=== PATIENT | female | born 1940 | race Caucasian/White ===

== ENCOUNTER 2016-07-23 14:22 | Outpatient (RCR) | payer MEDICARE, OTHER | END 2016-07-24 | disposition home or self-care (01) | LOC: M PR 14:22 | PROVIDERS: ATTEND Internal Medicine | DX: I27.81 Cor pulmonale (chronic) (principal) | CPT/HCPCS: G0424 ×7 ==

== ENCOUNTER 2016-08-10 12:30 | Outpatient (RCR) | payer MEDICARE, OTHER | END 2016-08-21 | LOC: M PR 12:30 | PROVIDERS: ATTEND Internal Medicine | DX: I27.81 Cor pulmonale (chronic) (principal) | CPT/HCPCS: G0424 ×5 ==

== ENCOUNTER 2016-09-14 13:26 | Outpatient (RCR) | payer MEDICARE, OTHER | END 2016-09-21 | LOC: M PR 13:26 | PROVIDERS: ATTEND Internal Medicine | DX: Z51.89 Encounter for other specified aftercare (principal); I27.81 Cor pulmonale (chronic) | CPT/HCPCS: G0424 ×5 ==

== ENCOUNTER 2016-10-10 12:30 | Outpatient (RCR) | payer MEDICARE, OTHER | END 2016-10-21 | LOC: M PR 12:30 | PROVIDERS: ATTEND Internal Medicine | DX: Z51.89 Encounter for other specified aftercare (principal); I27.81 Cor pulmonale (chronic) | CPT/HCPCS: G0424 ×3 ==

== ENCOUNTER 2016-10-22 08:17 | Outpatient (RCR) | payer MEDICARE, OTHER | END 2016-11-21 | LOC: M PR 08:17 | PROVIDERS: ATTEND Internal Medicine | DX: Z51.89 Encounter for other specified aftercare (principal); I27.81 Cor pulmonale (chronic) ==

== ENCOUNTER 2016-11-22 08:48 | Outpatient (RCR) | payer MEDICARE, OTHER | END 2016-12-21 | LOC: M PR 08:48 | PROVIDERS: ATTEND Internal Medicine | DX: I27.81 Cor pulmonale (chronic) (principal) ==

== ENCOUNTER → 2016-11-29 | Outpatient (REF) | payer MEDICARE, OTHER | LOC: M LAB REF 16:15 | PROVIDERS: ATTEND Surgery | DX: D04.71 Carcinoma in situ of skin of right lower limb, including hip (principal) ==

== ENCOUNTER → 2017-01-01 | Outpatient (CLI) | payer MEDICARE, OTHER ==
--- NOTE | 2017-01-01 16:22 | REP ---
REASON: Cough. COMPARISON: 08/04/2015 Marked chronic changes are seen throughout the lung [place] without evidence of an acute patchy parenchymal opacity or pleural effusion. Cardiomediastinal silhouette is unchanged. There is cardiomegaly. There is no change in the osseous structures. IMPRESSION: Marked chronic changes without plain radiographic evidence of acute disease superimposed on chronic change, however, it needs to be correlated clinically and if necessary obtain chest CT. Signed by Primo Conway DO 01/01/2017 04:37 P
== END ==
LOC: M ADAMS 11:44
PROVIDERS: ATTEND Internal Medicine
DX: R05 Cough (principal)

== ENCOUNTER → 2017-02-16 | Outpatient (CLI) | payer MEDICARE, OTHER ==
--- NOTE | 2017-02-16 12:13 | REP ---
Chest two views HISTORY: foreign body Comparison: 01/01/2017 A diffuse increase in interstitial markings is present in the lungs consistent with chronic interstitial fibrosis. . The heart is normal in size. The pulmonary vasculature is normal in appearance. The bony structure is intact. There is no radiopaque foreign body. IMPRESSION: Chronic interstitial fibrosis. Signed by Constantino Black MD 02/16/2017 12:05 P
== END ==
LOC: M ADAMS 11:46
PROVIDERS: ATTEND Physician Assistant Medical
DX: J84.10 Pulmonary fibrosis, unspecified (principal)

== ENCOUNTER 2017-09-02 13:43 | Outpatient (RCR) | payer SELFPAY, MEDICARE, OTHER | END 2017-09-21 | LOC: M CR 13:43 | DX: Z51.89 Encounter for other specified aftercare (principal); J84.10 Pulmonary fibrosis, unspecified ==

== ENCOUNTER 2017-10-16 15:12 | Outpatient (RCR) | payer SELFPAY | END 2017-10-21 | LOC: M CR 15:12 | DX: Z51.89 Encounter for other specified aftercare (principal); J84.10 Pulmonary fibrosis, unspecified ==

== ENCOUNTER → 2017-10-24 | Outpatient (REF) | payer MEDICARE, OTHER ==
[2017-10-24 18:09] LABS: AMYLASE 40 U/L (25-115)
[2017-10-24 18:09] LABS: LIPASE 81 U/L (73-393)
== END ==
LOC: M LAB REF 16:43
DX: R19.7 Diarrhea, unspecified (principal); R10.9 Unspecified abdominal pain
CPT/HCPCS: 82150

== ENCOUNTER → 2017-10-25 | Outpatient (REF) | payer MEDICARE, OTHER | LOC: M LAB REF 19:28 | DX: R19.7 Diarrhea, unspecified (principal) | CPT/HCPCS: 87507 ==

== ENCOUNTER → 2018-01-08 | Outpatient (REF) | payer MEDICARE, OTHER | LOC: M LAB REF 19:22 | DX: N30.01 Acute cystitis with hematuria (principal) | CPT/HCPCS: 87186 ==

== ENCOUNTER → 2018-08-01 | Outpatient (REF) | payer MEDICARE, OTHER ==
[~2018-08-01] MED LIST: ADV250INH INH; AMLO5TAB6 PO; ASPI1TAB PO; COZA100T2 PO; CRES20TA PO; FLUO20CA8 PO; NEXI40CA PO; PATA0.2S OU; REST0.05 OU; SING10TA32 PO; TOPR25TA13 PO; VENTAER IN
== END ==
LOC: M LAB REF 16:08
PROVIDERS: ATTEND Nurse Practitioner Family
DX: N76.0 Acute vaginitis (principal)

== ENCOUNTER → 2019-01-30 | Outpatient (REF) | payer MEDICARE, OTHER ==
[~2019-01-30] MED LIST changes: -ASPI1TAB PO; +ASPI81TA26 PO; -CRES20TA PO; +CRES20TA2 PO; +TOPR25TA PO; -TOPR25TA13 PO
== END ==
LOC: M LAB REF 12:10
PROVIDERS: ATTEND Internal Medicine
DX: R19.7 Diarrhea, unspecified (principal)

== ENCOUNTER → 2019-02-19 | Outpatient (REF) | payer MEDICARE, OTHER | LOC: M LAB REF 19:12 | PROVIDERS: ATTEND Internal Medicine | DX: E87.6 Hypokalemia (principal) ==

== ENCOUNTER → 2019-03-25 | Outpatient (REF) | payer MEDICARE, OTHER | LOC: M LABDRWAD 11:45 | PROVIDERS: ATTEND Internal Medicine | DX: E87.6 Hypokalemia (principal) ==

== ENCOUNTER 2019-04-29 12:35 | Outpatient (RCR) | payer MEDICARE, OTHER ==
[2019-04-29] MEDS ORDERED: THIA100TA PO (13:51)
[2019-04-29] MEDS ORDERED: FLUO40CA PO (13:51)
[2019-04-29] MEDS ORDERED: DICY10CA13 PO (13:51)
[2019-04-29] MEDS ORDERED: OFEV1CAP PO (13:51)
[2019-04-29] MEDS ORDERED: LASI20TA3 PO (13:51)
[2019-04-29] MEDS ORDERED: ALIG4CAP PO (13:51)
[2019-04-29] MEDS ORDERED: CLAR10CA3 PO (13:51)
[2019-04-29] MEDS ORDERED: CENT50TA PO (13:51)
[2019-04-29] MEDS ORDERED: MOME50SP2 NARES (13:51)
[2019-04-29] MEDS ORDERED: ALBU83IN NEB (13:51)
[2019-04-29] MEDS ORDERED: SIME40TA PO (13:51)
[2019-04-29] MEDS ORDERED: HYDR25OIN TOP (13:51)
[2019-04-29] MEDS ORDERED: DIPH2.5T15 PO (13:51)
== END 2019-05-23 ==
LOC: M PR 12:35
PROVIDERS: ATTEND Internal Medicine Critical Care Medicine
DX: J84.112 Idiopathic pulmonary fibrosis (principal)

== ENCOUNTER → 2019-05-13 | Outpatient (REF) | payer MEDICARE, OTHER ==
[~2019-05-13] MED LIST changes: +ALBU83IN NEB; +ALIG4CAP PO; +CENT50TA PO; +CLAR10CA3 PO; +DICY10CA13 PO; +DIPH2.5T15 PO; +FLUO40CA PO; +HYDR25OIN TOP; +LASI20TA3 PO; +MOME50SP2 NARES; +OFEV1CAP PO; +SIME40TA PO; +THIA100TA PO
== END ==
LOC: M LAB REF 12:30
PROVIDERS: ATTEND Physician Assistant Medical
DX: N39.0 Urinary tract infection, site not specified (principal)

== ENCOUNTER → 2019-07-21 | Outpatient (REF) | payer MEDICARE, OTHER ==
[~2019-07-21] MED LIST changes: +FLUO20CA20 PO; -FLUO20CA8 PO
== END ==
LOC: M LAB REF 13:32
PROVIDERS: ATTEND Specialist
DX: R19.7 Diarrhea, unspecified (principal)

== ENCOUNTER → 2019-07-27 | Outpatient (REF) | payer MEDICARE, OTHER | LOC: M LAB REF 16:37 | PROVIDERS: ATTEND Internal Medicine | DX: N76.0 Acute vaginitis (principal) ==

== ENCOUNTER 2020-02-15 19:28 | Inpatient (IN) | payer MEDICARE, OTHER ==
[~2020-02-15] VITALS: Ht 154.9 cm; Wt 63.7 kg
[2020-02-15] MEDS: BUDESONIDE EC 3 MG CAP (ENTOCORT EC) PO SCH (03:20)
[~2020-02-15 19:28] MED LIST changes: +AMLO1TAB24 PO; -AMLO5TAB6 PO; +OLOP2.5D3 OU; -PATA0.2S OU
[2020-02-15 20:22] LABS: VENOUS HCO3 24.9 MEQ/L (23.0-27.0); VENOUS PARTIAL PRESSURE CO2 42.7 mmHg (38.0-50.0); VENOUS PARTIAL PRESSURE O2 159.1 mmHg (30.0-50.0); VENOUS PH 7.384 UNITS (7.330-7.430); VENOUS TOTAL CO2 26.2 MEQ/L (24.0-28.0)
[2020-02-15 20:23] LABS: VENOUS BASE EXCESS -0.2 (-2.0-2.0); VENOUS O2 SATURATION 99.2 % (60.0-80.0)
[2020-02-15] MEDS ORDERED: [UNRECOGNIZED DRUG - CODE] PO (20:31)
[2020-02-15] MEDS ORDERED: SPIR50TA4 PO (20:31)
[2020-02-15 20:33] LABS: BASO % 0.3 % (0.0-1.0); EOS # 0.5 10^3/uL (0.0-0.5); EOS % 4.2 % (0.0-3.0); HEMATOCRIT 35.1 % (36.0-47.0); HEMOGLOBIN 11.5 g/dl (12.0-15.5); LYMPH # 2.1 10^3/uL (1.5-5.0); LYMPH % 18.1 % (24.0-44.0); MEAN CORPUSCULAR HEMOGLOBIN 31.3 pg (27.0-33.0); MEAN CORPUSCULAR HGB CONC 32.8 g/dl (32.0-36.5); MEAN CORPUSCULAR VOLUME 95.6 fl (80.0-96.0); MONO # 1.1 10^3/uL (0.0-0.8); MONO % 8.9 % (0.0-5.0); NEUTROPHILS # 7.9 10^3/uL (1.5-8.5); NEUTROPHILS % 67.2 % (36.0-66.0); PLATELET COUNT, AUTOMATED 268 10^3/uL (150-450); RED BLOOD COUNT 3.67 10^6/uL (4.00-5.40); WHITE BLOOD COUNT 11.8 10^3/uL (4.0-10.0)
[2020-02-15] MEDS: ADVAIR HFA 230/21MCG INHALER INH SCH (21:00)
[2020-02-15] MEDS: METOPROLOL SUCC *XL* 25MG TAB (TopROL *XL*) PO SCH (21:00)
[2020-02-15 21:02] LABS: ALBUMIN 3.3 GM/DL (3.2-5.2); ALT/SGPT 13 U/L (12-78); BILIRUBIN,DIRECT < 0.1 MG/DL (0.0-0.2); BILIRUBIN,TOTAL 0.2 MG/DL (0.2-1.0); BLOOD UREA NITROGEN 14 MG/DL (7-18); CALCIUM LEVEL 8.7 MG/DL (8.8-10.2); CARBON DIOXIDE LEVEL 25 MEQ/L (21-32); CHLORIDE LEVEL 93 MEQ/L (98-107); CK-MB VALUE MASS 1.1 NG/ML (<3.6); CPK CREATINE PHOSPHOKINASE 43 U/L (26-192); CREATININE FOR GFR 0.51 MG/DL (0.55-1.30); GLOMERULAR FILTRATION RATE > 60.0 (>39); GLUCOSE, FASTING 97 MG/DL (70-100); MB/CK RELATIVE INDEX 2.56 (< OR =4); NT-PRO BNP 203 PG/ML (<450); POTASSIUM SERUM 4.6 MEQ/L (3.5-5.1); SODIUM LEVEL 125 MEQ/L (136-145); TOTAL PROTEIN 6.9 GM/DL (6.4-8.2); TROPONIN I < 0.02 NG/ML (< 0.10)
[2020-02-15] MEDS ORDERED: ISOVUE-370 76% 100ML VIAL As Ordered ONE (22:14)
--- NOTE | 2020-02-15 23:12 | REPVR ---
PROCEDURE INFORMATION: Exam: CT Angiography Chest With Contrast Exam date and time: 02/15/2020 10:36 PM Age: 79 years old Clinical indication: Chest pain; Additional info: Shortness of breath, IPF, hypoxia TECHNIQUE: Imaging protocol: Computed tomographic angiography of the chest with intravenous contrast. 3D rendering (Not supervised by radiologist): MIP and/or 3D reconstructed images were created by the technologist. Radiation optimization: All CT scans at this facility use at least one of these dose optimization techniques: automated exposure control; mA and/or kV adjustment per patient size (includes targeted exams where dose is matched to clinical indication); or iterative reconstruction. Contrast material: ISOVUE 370; Contrast volume: 75 ml; Contrast route: INTRAVENOUS (IV); COMPARISON: CR PORTABLE CHEST X-RAY 02/15/2020 8:17 PM FINDINGS: Pulmonary arteries: No pulmonary embolism. The pulmonary artery trunk is dilated and measures 3.2 cm in diameter, which can be seen with pulmonary artery hypertension. Great vessels off aortic arch: The brachiocephalic artery, imaged proximal portions of the common carotid arteries, imaged proximal portions of the vertebral arteries, and subclavian arteries are intact. No stenosis or occlusion of these vessels is noted. Aorta: The thoracic aorta is intact and patent. There is no thoracic aortic aneurysm, pseudoaneurysm, penetrating atherosclerotic ulcer, intramural hematoma, or dissection. There are mild atherosclerotic calcifications. Thyroid: Unremarkable. Tracheobronchial tree: Patent. There is traction bronchiectasis in both lungs. Lungs: There is subpleural reticulation, honeycombing, and interlobular septal thickening in both lungs. No lung consolidation or mass is noted. Pleural space: Unremarkable. No pneumothorax. No pleural effusion. Heart: The heart is enlarged. Coronary artery calcifications are present. No pericardial effusion is noted. Mediastinal space: There is a moderate to large sliding hiatal hernia. No mediastinal mass, fluid collection, or pneumomediastinum. Lymph nodes: There is a 10 mm prevascular lymph node and a 14 mm subcarinal lymph node. Gallbladder and bile ducts: No calcified gallstones are noted. No gallbladder wall thickening, pericholecystic fluid, or pericholecystic inflammatory changes are identified. No dilation of the bile ducts is noted. No calcified stones are seen in the common bile duct. Spleen: Normal. No splenomegaly is noted. Adrenals: Normal. No adrenal mass is noted. Bones/joints: There is no fracture or dislocation. No suspicious osteolytic or osteoblastic lesion. There are degenerative changes involving the thoracic spine. Soft tissues: Unremarkable. IMPRESSION: 1. No pulmonary embolism. 2. No thoracic aortic aneurysm, pseudoaneurysm, intramural hematoma, penetrating atherosclerotic ulcer, or dissection. 3. Subpleural reticulation, honeycombing, interlobular septal thickening, traction bronchiectasis in both lungs, which are findings in keeping with the patient's history of idiopathic pulmonary fibrosis. 4. Dilation of the pulmonary artery trunk, which may indicate pulmonary artery hypertension. 5. Cardiomegaly. 6. Moderate to large sliding hiatal hernia. 7. Prevascular and subcarinal lymphadenopathy. Electronically signed by: Cristian Drew On 02/15/2020 23:13:03 PM
[2020-02-16] MEDS ORDERED: methylPREDNISolone 125MG 2ML VIAL IV SCH
[2020-02-16] MEDS ORDERED: ALBUTEROL SULFATE 2.5 MG/0.5 ML INH NEB SOLN NEB PRN (00:45)
[2020-02-16] MEDS ORDERED: MOME50SP2 (01:11)
[2020-02-16] MEDS ORDERED: ALBU83IN INH (01:11)
[2020-02-16] MEDS ORDERED: PSEU30TA85 PO (01:11)
[2020-02-16] MEDS ORDERED: PROC1CRE5 PR (01:11)
[2020-02-16] MEDS ORDERED: [UNRECOGNIZED DRUG - CODE] PO (01:11)
[2020-02-16] MEDS ORDERED: BUDE3CAP PO (01:11)
[2020-02-16] MEDS ORDERED: SF 51.1C TEETH (01:11)
[2020-02-16] MEDS ORDERED: VENTAER INH (01:11)
[2020-02-16] MEDS ORDERED: FLUO40CA PO (01:11)
[2020-02-16] MEDS ORDERED: ADVA230A INH (01:11)
[2020-02-16] MEDS ORDERED: LOMO2.5T PO (01:11)
[2020-02-16] MEDS ORDERED: ASPI-161 PO (01:11)
[2020-02-16] MEDS ORDERED: DICY10CA13 PO (01:11)
[2020-02-16] MEDS ORDERED: ESTR1CRE VA (01:11)
[2020-02-16] MEDS ORDERED: LOMOTIL 2.5MG/0.025MG TABLET PO PRN (01:30)
[2020-02-16] MEDS ORDERED: ANUSOL HC CREAM 30GM PR PRN (01:30)
[2020-02-16] MEDS ORDERED: DICYCLOMINE 10 MG CAP PO PRN (01:30)
[2020-02-16] MEDS ORDERED: PSEUDOEPHEDRINE 30 MG TAB PO PRN (01:30)
--- NOTE | 2020-02-16 01:37 | IPNPDOC ---
Date Seen The patient was seen on 02/16/20. Progress Note addendum to H&P Hyponatremia -check serum and urine osm, uric acid -ct chest-no nodules -check bmp q6hrs. VS, I&O, 24H, Fishbone Vital Signs/I&O Vital Signs Date Time Temp Pulse Resp B/P (MAP) Pulse Ox O2 Delivery O2 Flow Rate FiO2 02/16/20 00:03 78 16 111/85 (94) 98 Room Air 02/15/20 21:45 98.6 02/15/20 20:48 2.0 Laboratory Data 24H LABS Laboratory Tests 2 02/15/20 19:50: Immature Granulocyte % (Auto) 1.3, Neutrophils (%) (Auto) 67.2H, Lymphocytes (%) (Auto) 18.1L, Monocytes (%) (Auto) 8.9H, Eosinophils (%) (Auto) 4.2H, Basophils (%) (Auto) 0.3, Neutrophils # (Auto) 7.9, Lymphocytes # (Auto) 2.1, Monocytes # (Auto) 1.1H, Eosinophils # (Auto) 0.5, Basophils # (Auto) 0.0, Nucleated Red Blood Cells % (auto) 0.0, Venous Blood pH 7.384, Venous Blood Partial Pressure CO2 42.7, Venous Blood Partial Pressure O2 159.1H, Venous Blood Total Carbon Dioxide 26.2, Venous Blood HCO3 24.9, Venous Blood Oxygen Saturation 99.2H, Venous Blood Base Excess -0.2, Anion Gap 7L, Glomerular Filtration Rate > 60.0, Lactic Acid Level 1.0, Calcium Level 8.7L, Total Bilirubin 0.2, Direct Bilirubin < 0.1, Aspartate Amino Transf (AST/SGOT) 15, Alanine Aminotransferase (ALT/SGPT) 13, Alkaline Phosphatase 57, Total Creatine Kinase 43, Creatine Kinase MB 1.1, Creatine Kinase MB Relative Index 2.56, Troponin I < 0.02, YU-[id number]-Type Natriuretic Peptide 203, Total Protein 6.9, Albumin 3.3, Albumin/Globulin Ratio 0.9L, Thyroid Stimulating Hormone (TSH) 2.750 CBC/BMP Laboratory Tests 02/15/20 19:50 Microbiology Microbiology 02/15/20 Blood Culture, Received Pending 02/15/20 Blood Culture, Received Pending CARLITO LOZANO MD Feb 16, 2020 01:37
[2020-02-16 02:27] VITALS: BP 144/69
[2020-02-16] MEDS: NS 1,000 ML IV SCH ×2 (02:42→11:21)
[2020-02-16] MEDS: ROSUVASTATIN 10 MG TAB (CRESTOR) PO SCH ×2 (03:24→20:34)
[2020-02-16] MEDS: SPIRONOLACTONE 25 MG TAB PO SCH ×2 (03:25→20:34)
[2020-02-16] MEDS: methylPREDNISolone 125MG 2ML VIAL IV SCH ×2 (03:25→09:07)
[2020-02-16] MEDS: FLUoxetine 20 MG CAP PO SCH ×2 (03:25→20:36)
[2020-02-16] MEDS: ASPIRIN 81 MG ENTERIC TAB PO SCH ×2 (03:25→20:36)
[2020-02-16] MEDS: MONTELUKAST 10 MG TAB PO SCH ×2 (03:25→20:36)
[2020-02-16] MEDS: LOSARTAN 50MG TABLET PO SCH ×2 (03:26→20:35)
[2020-02-16] MEDS: ALBUTEROL SULFATE 2.5 MG/0.5 ML INH NEB SOLN NEB SCH ×6 (04:20→22:53)
[2020-02-16 06:00] VITALS: BP 132/67
[2020-02-16] MEDS: MOXIFLOXACIN 400 MG TAB PO SCH (06:16)
[2020-02-16 06:25] LABS: HEMOGLOBIN 11.5 g/dl (12.0-15.5); MEAN CORPUSCULAR HEMOGLOBIN 32.8 pg (27.0-33.0); MEAN CORPUSCULAR HGB CONC 34.8 g/dl (32.0-36.5); PLATELET COUNT, AUTOMATED 252 10^3/uL (150-450); RED BLOOD COUNT 3.51 10^6/uL (4.00-5.40); WHITE BLOOD COUNT 6.4 10^3/uL (4.0-10.0)
[2020-02-16 07:07] LABS: BLOOD UREA NITROGEN 12 MG/DL (7-18); CALCIUM LEVEL 8.8 MG/DL (8.8-10.2); CARBON DIOXIDE LEVEL 26 MEQ/L (21-32); CHLORIDE LEVEL 94 MEQ/L (98-107); GLOMERULAR FILTRATION RATE > 60.0 (>39); GLUCOSE, FASTING 143 MG/DL (70-100); POTASSIUM SERUM 4.6 MEQ/L (3.5-5.1); SODIUM LEVEL 126 MEQ/L (136-145)
[2020-02-16] MEDS: ADVAIR HFA 230/21MCG INHALER INH SCH ×2 (07:32→19:51)
[2020-02-16] MEDS: PANTOPRAZOLE 40MG TAB (PROTONIX) PO SCH (09:07)
[2020-02-16] MEDS: ESBRIET 267 MG PO SCH ×3 (09:08→20:36)
[2020-02-16] MEDS: BUDESONIDE EC 3 MG CAP (ENTOCORT EC) PO SCH ×3 (09:24→20:34)
[2020-02-16 13:27] LABS: OSMOLALITY URINE 726 MOSM/KG (500-800)
[2020-02-16 13:35] LABS: SODIUM,RANDOM URINE 24 MEQ/L
[2020-02-16 14:00] VITALS: BP 130/63
--- NOTE | 2020-02-16 14:32 | IPNPDOC ---
Subjective Date Seen The patient was seen on 02/16/20. Subjective Chief Complaint/HPI feels much better, no more SOB General: Denies: ROS Unobtainable, Chills, Night Sweats, Fatigue, Malaise, Normal Appetite, Other Symptoms Constitutional: Denies: Chills, Fever, Malaise, Night Sweats, Weakness, Fatigue, Weight Loss, Lethargy, Other Skin: Denies: Rash, Lesions, Jaundice, Bruising, Itching, Dry, Breakdown, Nail Changes, Other Pulmonary: Denies: Dyspnea, Cough, Pleuritic Chest Pain, Other Symptoms Cardiovascular: Denies: Chest Pain, Palpitations, Orthopnea, Paroxysmal Noc. Dyspnea, Edema, Lt Headedness, Other Symptoms Gastrointestinal: Denies: Nausea, Vomiting, Abdominal Pain, Diarrhea, Consti pation, Melena, Hematochezia, Other Symptoms Musculoskeletal: Denies: Neck Pain, Back Pain, Shoulder Pain, Arm Pain, Hand Pain, Leg Pain, Foot Pain, Joint Pain, Muscle Pain, Spasms, Other Symptoms Neurological: Denies: Weakness, Numbness, Incoordination, Change in speech, Confusion, Seizures, Other Symptoms Psych: Denies: Mood Normal, Anxiety, Depression, Memory Issues, Thoughts of Self Harm, Anger, Thoughts of Harming Other, Other Psych Objective Physical Examination General Exam: Positive: Alert, Cooperative Eye Exam: Positive: PERRLA, Conjunctiva & lids normal ENT Exam: Positive: Atraumatic Neck Exam: Positive: Supple Chest Exam: Positive: Clear to auscultation, Normal air movement Heart Exam: Positive: Rate Normal, Normal S1, Normal S2 Abdomen Exam: Positive: Normal bowel sounds, Soft Extremity Exam: Positive: Normal pulses Skin Exam: Positive: Nl turgor and temperature Neuro Exam: Positive: Strength at 5/5 X4 ext, Cranial Nerves 3-12 NL Psych Exam: Positive: Mood NL, Oriented x 3 Assessment /Plan Problems (1) IPF (idiopathic pulmonary fibrosis) Status: Acute (2) Chronic respiratory failure with hypoxia Status: Acute (3) Hyponatremia Status: Chronic Plan/VTE VTE Prophylaxis Ordered?: Yes Plan Pt is clinically improving very well On Exam: no wheezing or SOB DC solumedrol Start prednisone 40mg PO daily possible Dc in am Recheck labs in am Hyponatremia most like chronic in nature as pt is asymptomatic VS, I&O, 24H, Fishbone Vital Signs/I&O Vital Signs Date Time Temp Pulse Resp B/P (MAP) Pulse Ox O2 Delivery O2 Flow Rate FiO2 02/16/20 14:00 97.4 70 18 130/63 (85) 99 Nasal Cannula 3.0 I&O- Last 24 Hours up to 6 AM 02/16/20 05:59 Intake Total 30 ml Balance 30 ml Laboratory Data 24H LABS Laboratory Tests 2 02/15/20 19:50: Immature Granulocyte % (Auto) 1.3, Neutrophils (%) (Auto) 67.2H, Lymphocytes (%) (Auto) 18.1L, Monocytes (%) (Auto) 8.9H, Eosinophils (%) (Auto) 4.2H, Basophils (%) (Auto) 0.3, Neutrophils # (Auto) 7.9, Lymphocytes # (Auto) 2.1, Monocytes # (Auto) 1.1H, Eosinophils # (Auto) 0.5, Basophils # (Auto) 0.0, Nucleated Red Blood Cells % (auto) 0.0, Venous Blood pH 7.384, Venous Blood Partial Pressure CO2 42.7, Venous Blood Partial Pressure O2 159.1H, Venous Blood Total Carbon Dioxide 26.2, Venous Blood HCO3 24.9, Venous Blood Oxygen Saturation 99.2H, Venous Blood Base Excess -0.2, Anion Gap 7L, Glomerular Filtration Rate > 60.0, Lactic Acid Level 1.0, Calcium Level 8.7L, Total Bilirubin 0.2, Direct Bilirubin < 0.1, Aspartate Amino Transf (AST/SGOT) 15, Alanine Aminotransferase (ALT/SGPT) 13, Alkaline Phosphatase 57, Total Creatine Kinase 43, Creatine Kinase MB 1.1, Creatine Kinase MB Relative Index 2.56, Troponin I < 0.02, XJ-Xju-T-Type Natriuretic Peptide 203, Total Protein 6.9, Albumin 3.3, Albumin/Globulin Ratio 0.9L, Thyroid Stimulating Hormone (TSH) 2.750 02/16/20 06:01: Nucleated Red Blood Cells % (auto) 0.0, Anion Gap 6L, Glomerular Filtration Rate > 60.0, Lactic Acid Level 0.7, Calcium Level 8.8 02/16/20 11:25: Urine Random Osmolality 726, Urine Random Sodium 24 CBC/BMP Laboratory Tests 02/15/20 19:50 02/16/20 06:01 Microbiology Microbiology 02/15/20 Blood Culture, Received Pending 02/15/20 Blood Culture, Received Pending JASWANT HANDY MD Feb 16, 2020 14:32
[2020-02-16] MEDS: predniSONE 20 MG TAB PO SCH (15:22)
[2020-02-16] MEDS: METOPROLOL SUCC *XL* 25MG TAB (TopROL *XL*) PO SCH (20:34)
[2020-02-16 21:48] LABS: FREE THYROXINE INDEX 2.8 % (1.3-4.8); T UPTAKE 29 % (30-39); THYROID STIMULATING HORMONE 0.494 uIU/ML (0.358-3.740); THYROXINE (T4) 9.6 UG/DL (4.5-12.0); URIC ACID 2.1 MG/DL (2.6-6.0)
[2020-02-16 22:00] VITALS: BP 122/55
[2020-02-17] MEDS: ALBUTEROL SULFATE 2.5 MG/0.5 ML INH NEB SOLN NEB SCH ×6 (02:27→22:58)
[2020-02-17] MEDS: MOXIFLOXACIN 400 MG TAB PO SCH (05:34)
[2020-02-17 06:00] VITALS: BP 118/58
[2020-02-17 06:51] LABS: BASO % 0.1 % (0.0-1.0); HEMATOCRIT 30.5 % (36.0-47.0); HEMOGLOBIN 10.1 g/dl (12.0-15.5); LYMPH # 0.8 10^3/uL (1.5-5.0); LYMPH % 4.2 % (24.0-44.0); MEAN CORPUSCULAR HEMOGLOBIN 31.9 pg (27.0-33.0); MEAN CORPUSCULAR HGB CONC 33.1 g/dl (32.0-36.5); MEAN CORPUSCULAR VOLUME 96.2 fl (80.0-96.0); MONO # 1.6 10^3/uL (0.0-0.8); MONO % 8.6 % (0.0-5.0); NEUTROPHILS # 16.5 10^3/uL (1.5-8.5); NEUTROPHILS % 86.2 % (36.0-66.0); PLATELET COUNT, AUTOMATED 255 10^3/uL (150-450); RED BLOOD COUNT 3.17 10^6/uL (4.00-5.40); WHITE BLOOD COUNT 19.2 10^3/uL (4.0-10.0)
[2020-02-17 07:10] LABS: ALBUMIN 2.9 GM/DL (3.2-5.2); ALT/SGPT 11 U/L (12-78); BILIRUBIN,TOTAL 0.2 MG/DL (0.2-1.0); BLOOD UREA NITROGEN 16 MG/DL (7-18); CALCIUM LEVEL 8.8 MG/DL (8.8-10.2); CARBON DIOXIDE LEVEL 25 MEQ/L (21-32); CHLORIDE LEVEL 98 MEQ/L (98-107); CREATININE FOR GFR 0.52 MG/DL (0.55-1.30); GLOMERULAR FILTRATION RATE > 60.0 (>39); GLUCOSE, FASTING 118 MG/DL (70-100); POTASSIUM SERUM 4.1 MEQ/L (3.5-5.1); SODIUM LEVEL 129 MEQ/L (136-145); TOTAL PROTEIN 6.2 GM/DL (6.4-8.2)
[2020-02-17] MEDS: ADVAIR HFA 230/21MCG INHALER INH SCH ×2 (07:52→21:00)
[2020-02-17] MEDS: BUDESONIDE EC 3 MG CAP (ENTOCORT EC) PO SCH ×3 (08:56→21:00)
[2020-02-17] MEDS: predniSONE 20 MG TAB PO SCH (08:56)
[2020-02-17] MEDS: PANTOPRAZOLE 40MG TAB (PROTONIX) PO SCH (08:56)
[2020-02-17] MEDS: ESBRIET 267 MG PO SCH ×3 (08:56→21:04)
[2020-02-17] MEDS: methylPREDNISolone 125MG 2ML VIAL IV SCH ×2 (10:10→16:51)
[2020-02-17] MEDS: ENOXAPARIN 40MG/0.4ML SYRINGE (J1650 PER 10MG) SC SCH (10:10)
[2020-02-17] MEDS: ACETAMINOPHEN TAB 650MG DOSE (2X325MG) PO PRN (10:10)
--- NOTE | 2020-02-17 11:53 | IPNPDOC ---
Subjective Date Seen The patient was seen on 02/17/20. Subjective Chief Complaint/HPI pt has increased SOB today and became hypoxic last time one time. General: Denies: ROS Unobtainable, Chills, Night Sweats, Fatigue, Malaise, Normal Appetite, Other Symptoms Skin: Denies: Rash, Lesions, Jaundice, Bruising, Itching, Dry, Breakdown, Nail Changes, Other Pulmonary: Reports: Other Symptoms (bibasilar crackles audible) Cardiovascular: Denies: Chest Pain, Palpitations, Orthopnea, Paroxysmal Noc. Dyspnea, Edema, Lt Headedness, Other Symptoms Gastrointestinal: Denies: Nausea, Vomiting, Abdominal Pain, Diarrhea, Constipation, Melena, Hematochezia, Other Symptoms Genitourinary: Denies: Dysuria, Frequency, Incontinence, Hematuria, Retention, Other Symptoms Musculoskeletal: Denies: Neck Pain, Back Pain, Shoulder Pain, Arm Pain, Hand Pain, Leg Pain, Foot Pain, Joint Pain, Muscle Pain, Spasms, Other Symptoms Neurological: Denies: Weakness, Numbness, Incoordination, Change in speech, Confusion, Seizures, Other Symptoms Objective Physical Examination Chest Exam: Positive: Other (bilat crackles audible today) Heart Exam: Positive: Rate Normal, Normal S1, Normal S2 Abdomen Exam: Positive: Normal bowel sounds, Soft Extremity Exam: Positive: Normal pulses Skin Exam: Positive: Nl turgor and temperature Assessment /Plan Problems (1) IPF (idiopathic pulmonary fibrosis) Status: Acute (2) Chronic respiratory failure with hypoxia Status: Acute (3) Hyponatremia Status: Chronic Plan/VTE VTE Prophylaxis Ordered?: Yes Plan Pt has increased SOB today Will switch her back to Solumedrol 60mg IVP q * Hr On Exam:bilat crackles audible DC prednisone will slowly taper off steroids till DC Hyponatremia most like chronic in nature as pt is asymptomatic anbd it is improving VS, I&O, 24H, Fishbone Vital Signs/I&O Vital Signs Date Time Temp Pulse Resp B/P (MAP) Pulse Ox O2 Delivery O2 Flow Rate FiO2 02/17/20 09:04 3.0 02/17/20 06:00 97.9 78 16 118/58 (78) 96 Nasal Cannula I&O- Last 24 Hours up to 6 AM 02/17/20 06:00 Intake Total 2220 ml Output Total 800 ml Balance 1420 ml Laboratory Data 24H LABS Laboratory Tests 2 02/17/20 05:24: Immature Granulocyte % (Auto) 0.9, Neutrophils (%) (Auto) 86.2H, Lymphocytes (%) (Auto) 4.2L, Monocytes (%) (Auto) 8.6H, Eosinophils (%) (Auto) 0.0, Basophils (%) (Auto) 0.1, Neutrophils # (Auto) 16.5H, Lymphocytes # (Auto) 0.8L, Monocytes # (Auto) 1.6H, Eosinophils # (Auto) 0.0, Basophils # (Auto) 0.0, Nucleated Red Blood Cells % (auto) 0.0, Anion Gap 6L, Glomerular Filtration Rate > 60.0, Osmolality 271L, Calcium Level 8.8, Total Bilirubin 0.2, Aspartate Amino Transf (AST/SGOT) 13, Alanine Aminotransferase (ALT/SGPT) 11L, Alkaline Phosphatase 47, Total Protein 6.2L, Albumin 2.9L, Albumin/Globulin Ratio 0.9L CBC/BMP Laboratory Tests 02/17/20 05:24 Microbiology Microbiology 02/15/20 Blood Culture - Preliminary, Resulted No growth after 24 hours . All specim... 02/15/20 Blood Culture - Preliminary, Resulted No growth after 24 hours . All specim... JASWANT HANDY MD Feb 17, 2020 11:53
[2020-02-17 14:00] VITALS: BP 114/63
[2020-02-17] MEDS ORDERED: ISOVUE-370 76% 100ML VIAL As Ordered ONE (17:44)
--- NOTE | 2020-02-17 18:43 | REPVR ---
PROCEDURE INFORMATION: Exam: CT Angiography Chest With Contrast Exam date and time: 02/17/2020 5:46 PM Age: 79 years old Clinical indication: Chest pain; Additional info: SOB, R/O pe TECHNIQUE: Imaging protocol: Computed tomographic angiography of the chest with intravenous contrast. 3D rendering (Not supervised by radiologist): MIP and/or 3D reconstructed images were created by the technologist. Radiation optimization: All CT scans at this facility use at least one of these dose optimization techniques: automated exposure control; mA and/or kV adjustment per patient size (includes targeted exams where dose is matched to clinical indication); or iterative reconstruction. Contrast material: ISOVUE 370; Contrast volume: 100 ml; Contrast route: INTRAVENOUS (IV); COMPARISON: CT ANGIO CHEST 02/15/2020 10:24 PM FINDINGS: Pulmonary arteries: There is no evidence of filling defects within the pulmonary arterial circulation to suggest pulmonary embolism. Aorta: No thoracic aortic aneurysm or dissection. Lungs: There is diffuse septal thickening, bronchiectasis, fibrosis without focal consolidation. There may be superimposed edema posteriorly at the lung bases although there are no pleural effusions. Pleural space: See "Lungs" finding. Heart: Mild cardiomegaly without pericardial effusion. Mediastinal space: There is a hiatal hernia. Lymph nodes: Mediastinal and hilar lymphadenopathy is again noted with largest AP window node of 2.3 cm. Liver: There are no focal liver lesions in the portion imaged. Gallbladder and bile ducts: The gallbladder is unremarkable. Pancreas: The pancreas is normal. Spleen: The spleen is normal. Adrenals: The adrenal glands are unremarkable. Kidneys : The imaged portion of the kidneys are unremarkable. Bones/joints: Unremarkable. No acute fracture. Soft tissues: Unremarkable. IMPRESSION: 1. No evidence of pulmonary emboli. 2. Findings consistent with patient's diagnosis of IPF without evidence of superimposed pneumonia although there may be superimposed edema posteriorly at the lung bases which has progressed in comparison to the 02/15/2020 CT. Electronically signed by: Chasity Worthington On 02/17/2020 18:44:14 PM
[2020-02-17] MEDS: MONTELUKAST 10 MG TAB PO SCH (21:00)
[2020-02-17] MEDS: ASPIRIN 81 MG ENTERIC TAB PO SCH (21:01)
[2020-02-17] MEDS: METOPROLOL SUCC *XL* 25MG TAB (TopROL *XL*) PO SCH (21:01)
[2020-02-17] MEDS: ROSUVASTATIN 10 MG TAB (CRESTOR) PO SCH (21:01)
[2020-02-17] MEDS: SPIRONOLACTONE 25 MG TAB PO SCH (21:01)
[2020-02-17] MEDS: LOSARTAN 50MG TABLET PO SCH (21:02)
[2020-02-17] MEDS: FLUoxetine 20 MG CAP PO SCH (21:03)
[2020-02-17 22:00] VITALS: BP 121/59
[2020-02-17] MEDS ORDERED: RAMELTEON 8 MG TAB (ROZEREM) PO ONE (23:30)
[2020-02-17 23:35] VITALS: BP 139/69
[2020-02-18] VITALS (7 sets, daily range): BP systolic 123–158; BP diastolic 74–94
[2020-02-18 01:20] LABS: NT-PRO BNP 4157 PG/ML (<450)
[2020-02-18] MEDS ORDERED: IPRATROPIUM 0.5MG/ALBUTEROL 2.5MG INH SOL UD 3ML (DUONEB) NEB STA (02:26)
[2020-02-18] MEDS: methylPREDNISolone 125MG 2ML VIAL IV SCH ×4 (02:29→21:16)
[2020-02-18 02:55] LABS: BLOOD UREA NITROGEN 12 MG/DL (7-18); CALCIUM LEVEL 8.7 MG/DL (8.8-10.2); CARBON DIOXIDE LEVEL 22 MEQ/L (21-32); CHLORIDE LEVEL 98 MEQ/L (98-107); GLOMERULAR FILTRATION RATE > 60.0 (>39); GLUCOSE, FASTING 157 MG/DL (70-100); POTASSIUM SERUM 4.3 MEQ/L (3.5-5.1); SODIUM LEVEL 131 MEQ/L (136-145)
[2020-02-18] MEDS: ALBUTEROL SULFATE 2.5 MG/0.5 ML INH NEB SOLN NEB SCH ×5 (02:55→20:00)
[2020-02-18 02:56] LABS: VENOUS HCO3 21.6 MEQ/L (23.0-27.0); VENOUS PARTIAL PRESSURE CO2 32.5 mmHg (38.0-50.0); VENOUS PARTIAL PRESSURE O2 179.7 mmHg (30.0-50.0); VENOUS PH 7.441 UNITS (7.330-7.430); VENOUS TOTAL CO2 22.6 MEQ/L (24.0-28.0)
[2020-02-18 02:57] LABS: VENOUS BASE EXCESS -1.9 (-2.0-2.0); VENOUS O2 SATURATION 99.6 % (60.0-80.0)
--- NOTE | 2020-02-18 03:30 | REPVR ---
PROCEDURE INFORMATION: Exam: XR Chest, 1 View Exam date and time: 02/18/2020 2:57 AM Age: 79 years old Clinical indication: Other: PC; Additional info: R/p pulmonary congestion TECHNIQUE: Imaging protocol: XR of the chest Views: 1 view. COMPARISON: CR PORTABLE CHEST X-RAY 02/15/2020 8:17 PM FINDINGS: Limitations: Examination is limited somewhat by the portable technique. Lungs: Diffuse bilateral infiltrates. Pleural space: Unremarkable. No pleural effusion. No pneumothorax. Heart/Mediastinum: Heart is partially obscured. Bones/joints: Unremarkable. IMPRESSION: Diffuse bilateral infiltrates. Mildly increased from prior. Electronically signed by: Talia Wilburn On 02/18/2020 03:30:56 AM
[2020-02-18] MEDS: MOXIFLOXACIN 400 MG TAB PO SCH (05:09)
[2020-02-18] MEDS ORDERED: SLF 3 ML SYR IV PRN (05:45)
[2020-02-18] MEDS: SLF 3 ML SYR IV SCH ×3 (05:57→21:18)
[2020-02-18] MEDS: ACETAMINOPHEN TAB 650MG DOSE (2X325MG) PO PRN (06:28)
[2020-02-18] MEDS ORDERED: ALPRAZolam 0.25 MG TAB PO ONE (07:00)
[2020-02-18] MEDS ORDERED: FUROSEMIDE 40MG/4ML VIAL (J1940) IV ONE (07:00)
[2020-02-18 07:29] LABS: BASO % 0.1 % (0.0-1.0); HEMATOCRIT 31.7 % (36.0-47.0); HEMOGLOBIN 10.9 g/dl (12.0-15.5); LYMPH # 0.6 10^3/uL (1.5-5.0); LYMPH % 3.1 % (24.0-44.0); MEAN CORPUSCULAR HEMOGLOBIN 32.9 pg (27.0-33.0); MEAN CORPUSCULAR HGB CONC 34.4 g/dl (32.0-36.5); MEAN CORPUSCULAR VOLUME 95.8 fl (80.0-96.0); MONO # 1.7 10^3/uL (0.0-0.8); MONO % 8.9 % (0.0-5.0); NEUTROPHILS # 16.8 10^3/uL (1.5-8.5); NEUTROPHILS % 87.1 % (36.0-66.0); PLATELET COUNT, AUTOMATED 307 10^3/uL (150-450); RED BLOOD COUNT 3.31 10^6/uL (4.00-5.40); WHITE BLOOD COUNT 19.3 10^3/uL (4.0-10.0)
[2020-02-18] MEDS: ADVAIR HFA 230/21MCG INHALER INH SCH ×2 (07:45→20:08)
[2020-02-18] MEDS: ENOXAPARIN 40MG/0.4ML SYRINGE (J1650 PER 10MG) SC SCH (07:47)
[2020-02-18] MEDS: PANTOPRAZOLE 40MG TAB (PROTONIX) PO SCH (07:47)
[2020-02-18 07:57] LABS: ALBUMIN 3.2 GM/DL (3.2-5.2); ALT/SGPT 71 U/L (12-78); BILIRUBIN,TOTAL 0.3 MG/DL (0.2-1.0); BLOOD UREA NITROGEN 13 MG/DL (7-18); CALCIUM LEVEL 8.7 MG/DL (8.8-10.2); CARBON DIOXIDE LEVEL 24 MEQ/L (21-32); CHLORIDE LEVEL 96 MEQ/L (98-107); CREATININE FOR GFR 0.58 MG/DL (0.55-1.30); GLOMERULAR FILTRATION RATE > 60.0 (>39); GLUCOSE, FASTING 157 MG/DL (70-100); POTASSIUM SERUM 4.8 MEQ/L (3.5-5.1); SODIUM LEVEL 127 MEQ/L (136-145); TOTAL PROTEIN 6.9 GM/DL (6.4-8.2)
[2020-02-18] MEDS: ESBRIET 267 MG PO SCH ×3 (09:00→21:17)
[2020-02-18] MEDS: BUDESONIDE EC 3 MG CAP (ENTOCORT EC) PO SCH ×3 (09:00→21:17)
[2020-02-18] MEDS: ALPRAZolam 0.25 MG TAB PO PRN ×2 (12:06→18:06)
--- NOTE | 2020-02-18 12:43 | IPNPDOC ---
Subjective Date Seen The patient was seen on 02/18/20. Subjective Chief Complaint/HPI Pt developed Dyspnea with desaturation to 70% last night for about one hour. Pt feeling slightly better now. General: Denies: ROS Unobtainable, Chills, Night Sweats, Fatigue, Malaise, Normal Appetite, Other Symptoms Skin: Denies: Rash, Lesions, Jaundice, Bruising, Itching, Dry, Breakdown, Nail Changes, Other Pulmonary: Reports: Dyspnea Cardiovascular: Denies: Chest Pain, Palpitations, Orthopnea, Paroxysmal Noc. Dyspnea, Edema, Lt Headedness, Other Symptoms Gastrointestinal: Denies: Nausea, Vomiting, Abdominal Pain, Diarrhea, Cons tipation, Melena, Hematochezia, Other Symptoms Hematologic: Denies: Bruising, Bleeding Excessively, Petecchia, Purpura, Enlarged Lymph Nodes, Other Hematologic Endocrine: Denies: Polydipsia, Polyphagia, Polyuria, Heat Intolerance, Cold Intolerance, Other Endocrine Sx Musculoskeletal: Denies: Neck Pain, Back Pain, Shoulder Pain, Arm Pain, Hand Pain, Leg Pain, Foot Pain, Joint Pain, Muscle Pain, Spasms, Other Symptoms Neurological: Denies: Weakness, Numbness, Incoordination, Change in speech, Confusion, Seizures, Other Symptoms Objective Physical Examination General Exam: Positive: Alert, Cooperative Chest Exam: Positive: Other (bilat crackles) Heart Exam: Positive: Rate Normal, Normal S1, Normal S2 Abdomen Exam: Positive: Normal bowel sounds, Soft Extremity Exam: Positive: Normal pulses Skin Exam: Positive: Nl turgor and temperature Assessment /Plan Problems (1) IPF (idiopathic pulmonary fibrosis) Status: Acute Problem Text: Discussed with Pts Pulmonalgist Dr Oneill at [facility], he recommended to increase the IV steroids and as pt is not a candidate for lung transplant, she was declined to be transfered that as per Dr Oneill, it will not benefit pt, instead asked me to speak with family about palliative care. 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 Continue IV steroids,Nebs and oxygen support Anti-anxiety meds have been ordered Very Poor Prognosis- pt and family aware (2) Chronic respiratory failure with hypoxia Status: Acute Problem Text: as above (3) Hyponatremia Status: Chronic Problem Text: stable Plan/VTE VTE Prophylaxis Ordered?: Yes VS, I&O, 24H, [facility] Vital Signs/I&O Vital Signs Date Time Temp Pulse Resp B/P (MAP) Pulse Ox O2 Delivery O2 Flow Rate FiO2 02/18/20 12:00 97.3 95 21 132/78 (96) 95 Venturi Mask 12.0 40 I&O- Last 24 Hours up to 6 AM 02/18/20 06:00 Intake Total 1980 ml Output Total 600 ml Balance 1380 ml Laboratory Data 24H LABS Laboratory Tests 2 02/18/20 00:50: Anion Gap 11, Glomerular Filtration Rate > 60.0, Calcium Level 8.7L, HD-Lyf-G-Type Natriuretic Peptide 4157H 02/18/20 02:50: Blood Gas Bicarbonate Standard 23.0, Venous Blood pH 7.441H, Venous Blood P artial Pressure CO2 32.5L, Venous Blood Partial Pressure O2 179.7H, Venous Blood Total Carbon Dioxide 22.6L, Venous Blood HCO3 21.6L, Venous Blood Oxygen Saturation 99.6H, Venous Blood Base Excess -1.9 02/18/20 07:13: Anion Gap 7L, Glomerular Filtration Rate > 60.0, Calcium Level 8.7L, Immature Granulocyte % (Auto) 0.8, Neutrophils (%) (Auto) 87.1H, Lymphocytes (%) (Auto) 3.1L, Monocytes (%) (Auto) 8.9H, Eosinophils (%) (Auto) 0.0, Basophils (%) (Auto) 0.1, Neutrophils # (Auto) 16.8H, Lymphocytes # (Auto) 0.6L, Monocytes # (Auto) 1.7H, Eosinophils # (Auto) 0.0, Basophils # (Auto) 0.0, Nucleated Red Blood Cells % (auto) 0.0, Total Bilirubin 0.3, Aspartate Amino Transf (AST/SGOT) 67H, Alanine Aminotransferase (ALT/SGPT) 71, Alkaline Phosphatase 57, Total Protein 6.9, Albumin 3.2, Albumin/Globulin Ratio 0.9L CBC/BMP Laboratory Tests 02/18/20 00:50 02/18/20 07:13 Microbiology Microbiology 02/15/20 Blood Culture - Preliminary, Resulted No Growth after 48 hours. All Specime... 02/15/20 Blood Culture - Preliminary, Resulted No Growth after 48 hours. All Specime... JASWANT HANDY MD Feb 18, 2020 12:43
[2020-02-18] MEDS: MONTELUKAST 10 MG TAB PO SCH (21:17)
[2020-02-18] MEDS: ROSUVASTATIN 10 MG TAB (CRESTOR) PO SCH (21:17)
[2020-02-18] MEDS: FLUoxetine 20 MG CAP PO SCH (21:17)
[2020-02-18] MEDS: ASPIRIN 81 MG ENTERIC TAB PO SCH (21:17)
[2020-02-18] MEDS: SPIRONOLACTONE 25 MG TAB PO SCH (21:20)
[2020-02-18] MEDS: LOSARTAN 50MG TABLET PO SCH (21:21)
[2020-02-18] MEDS: METOPROLOL SUCC *XL* 25MG TAB (TopROL *XL*) PO SCH (21:21)
[2020-02-19] VITALS: BP 140/70
[2020-02-19] MEDS: methylPREDNISolone 125MG 2ML VIAL IV SCH ×4 (01:09→20:00)
[2020-02-19] MEDS: ALPRAZolam 0.25 MG TAB PO PRN ×2 (03:07→12:09)
[2020-02-19] MEDS: ALBUTEROL SULFATE 2.5 MG/0.5 ML INH NEB SOLN NEB SCH ×7 (03:09→23:38)
[2020-02-19 04:00] VITALS: BP 144/80
[2020-02-19] MEDS: MOXIFLOXACIN 400 MG TAB PO SCH (05:07)
[2020-02-19] MEDS: SLF 3 ML SYR IV SCH ×3 (05:09→22:00)
[2020-02-19 05:59] LABS: BASO % 0.1 % (0.0-1.0); HEMATOCRIT 31.2 % (36.0-47.0); HEMOGLOBIN 10.6 g/dl (12.0-15.5); LYMPH # 0.7 10^3/uL (1.5-5.0); LYMPH % 4.3 % (24.0-44.0); MEAN CORPUSCULAR VOLUME 94.3 fl (80.0-96.0); MONO # 1.5 10^3/uL (0.0-0.8); MONO % 9.8 % (0.0-5.0); NEUTROPHILS # 12.8 10^3/uL (1.5-8.5); NEUTROPHILS % 84.9 % (36.0-66.0); PLATELET COUNT, AUTOMATED 264 10^3/uL (150-450); RED BLOOD COUNT 3.31 10^6/uL (4.00-5.40)
[2020-02-19 06:20] LABS: BLOOD UREA NITROGEN 16 MG/DL (7-18); CALCIUM LEVEL 8.6 MG/DL (8.8-10.2); CARBON DIOXIDE LEVEL 25 MEQ/L (21-32); CHLORIDE LEVEL 92 MEQ/L (98-107); CREATININE FOR GFR 0.47 MG/DL (0.55-1.30); GLOMERULAR FILTRATION RATE > 60.0 (>39); GLUCOSE, FASTING 134 MG/DL (70-100); POTASSIUM SERUM 4.3 MEQ/L (3.5-5.1); SODIUM LEVEL 126 MEQ/L (136-145)
[2020-02-19 07:47] VITALS: BP 111/67
[2020-02-19] MEDS: ADVAIR HFA 230/21MCG INHALER INH SCH ×2 (07:47→20:30)
[2020-02-19] MEDS: BUDESONIDE EC 3 MG CAP (ENTOCORT EC) PO SCH ×3 (09:09→21:00)
[2020-02-19] MEDS: PANTOPRAZOLE 40MG TAB (PROTONIX) PO SCH (09:09)
[2020-02-19] MEDS: ENOXAPARIN 40MG/0.4ML SYRINGE (J1650 PER 10MG) SC SCH (09:10)
[2020-02-19] MEDS: ESBRIET 267 MG PO SCH ×3 (09:10→21:00)
--- NOTE | 2020-02-19 10:50 | IPNPDOC ---
Subjective Date Seen The patient was seen on 02/19/20. Subjective Chief Complaint/HPI pt is stutus quo, no more worsening of symptoms since yesterday present at bedside General: Denies: ROS Unobtainable, Chills, Night Sweats, Fatigue, Malaise, Normal Appetite, Other Symptoms Constitutional: Denies: Chills, Fever, Malaise, Night Sweats, Weakness, Fatigue, Weight Loss, Lethargy, Other Eyes: Denies: Pain, Vision change, Conjunctivae inflammation, Eyelid in flammation, Redness, Other ENT: Denies: Head Aches, Ear Pain, Dysphagia, Sinus Congestion, Post Nasal Drip, Sore Throat, Epistaxis, Other Symptoms Pulmonary: Reports: Dyspnea Cardiovascular: Denies: Chest Pain, Palpitations, Orthopnea, Paroxysmal Noc. Dyspnea, Edema, Lt Headedness, Other Symptoms Gastrointestinal: Denies: Nausea, Vomiting, Abdominal Pain, Diarrhea, Constipation, Melena, Hematochezia, Other Symptoms Endocrine: Denies: Polydipsia, Polyphagia, Polyuria, Heat Intolerance, Cold Intolerance, Other Endocrine Sx Musculoskeletal: Denies: Neck Pain, Back Pain, Shoulder Pain, Arm Pain, Hand Pain, Leg Pain, Foot Pain, Joint Pain, Muscle Pain, Spasms, Other Symptoms Neurological: Denies: Weakness, Numbness, Incoordination, Change in speech, Confusion, Seizures, Other Symptoms Objective Physical Examination General Exam: Positive: Alert, Cooperative Chest Exam: Positive: Diminished (BS but decreased bilat crackles) Heart Exam: Positive: Rate Normal, Normal S1, Normal S2 Abdomen Exam: Positive: Normal bowel sounds, Soft Extremity Exam: Positive: Normal pulses Skin Exam: Positive: Nl turgor and temperature Assessment /Plan Problems (1) IPF (idiopathic pulmonary fibrosis) Status: Acute Problem Text: Discussed with Pts Pulmonalgist Dr Oneill at [facility], he recommended to increase the IV steroids and as pt is not a candidate for lung transplant, she was declined to be transfered that as per Dr Oneill, it will not benefit pt, instead asked me to speak with family about palliative care. I had long discussion with pt and her at bedside, they both agreed for DNR/DNI but not ready for BUYER yet. Continue IV steroids,Nebs and oxygen support Anti-anxiety meds have been ordered Very Poor Prognosis- pt and family aware Pt signed DNR/DNI yesterday but nor ready for BUYER or palliative care yet (2) Chronic respiratory failure with hypoxia Status: Acute Problem Text: leukocytosis most likely secondary to Steroids, Doubt PNA But given the last CXR report of increased intestitial marking Will DC macrolides and start on IV Merrem and DOXY as prophylaxis Repeat CXR Serum legionella, mycoplasma,psitacossis levels serum Procalcitonin Continue Solumedrol 80mg IV q 6 hr Continue duo neb continue oxygen support (3) Hyponatremia Status: Chronic Problem Text: Chronic in nature , mos likely secondary to ch. illness Salt tablets Monitor BMP Plan/VTE VTE Prophylaxis Ordered?: Yes VS, I&O, 24H, Fishbone Vital Signs/I&O Vital Signs Date Time Temp Pulse Resp B/P (MAP) Pulse Ox O2 Delivery O2 Flow Rate FiO2 02/19/20 07:47 95.0 72 22 111/67 (82) 98 Venturi Mask 12.0 40 I&O- Last 24 Hours up to 6 AM 02/19/20 06:00 Intake Total 550 ml Output Total 650 ml Balance -100 ml Laboratory Data 24H LABS Laboratory Tests 2 02/19/20 05:31: Immature Granulocyte % (Auto) 0.9, Neutrophils (%) (Auto) 84.9H, Lymphocytes (%) (Auto) 4.3L, Monocytes (%) (Auto) 9.8H, Eosinophils (%) (Auto) 0.0, Basophils (%) (Auto) 0.1, Neutrophils # (Auto) 12.8H, Lymphocytes # (Auto) 0.7L, Monocytes # (Auto) 1.5H, Eosinophils # (Auto) 0.0, Basophils # (Auto) 0.0, Nucleated Red Blood Cells % (auto) 0.0, Anion Gap 9, Glomerular Filtration Rate > 60.0, C alcium Level 8.6L CBC/BMP Laboratory Tests 02/19/20 05:31 Microbiology Microbiology 02/15/20 Blood Culture - Preliminary, Resulted No Growth after 72 hours. All specime... 02/15/20 Blood Culture - Preliminary, Resulted No Growth after 72 hours. All specime... JASWANT HANDY MD Feb 19, 2020 10:50
--- NOTE | 2020-02-19 11:07 | REPVR ---
PROCEDURE INFORMATION: Exam: XR Chest, 1 View Exam date and time: 02/19/2020 10:53 AM Age: 79 years old Clinical indication: Other: Idiopathic pulmonary fibrosis; Additional info: IPF TECHNIQUE: Imaging protocol: XR of the chest Views: 1 view. COMPARISON: CR PORTABLE CHEST X-RAY 02/18/2020 2:54 AM FINDINGS: Lungs: Redemonstration of reticular pulmonary opacities, compatible with known pulmonary fibrosis. Persistent mild consolidation in the left lung base. Pleural space: Unremarkable. No pleural effusion. No pneumothorax. Heart/Mediastinum: Stable prominence of the cardiac silhouette. Vasculature: Calcification of the thoracic aorta. Diaphragm: Redemonstration of mild elevation of the right hemidiaphragm. Bones/joints: Degenerative change and scoliotic curvature of the spine. IMPRESSION: Pulmonary fibrosis. Mild consolidation in the left lung base may be due to infection or edema. Electronically signed by: Susi Lyons On 02/19/2020 11:07:37 AM
[2020-02-19 12:00] VITALS: BP 131/74
[2020-02-19] MEDS ORDERED: MEROPENEM INJ 500 MG in IV 1 EA IV ONE (12:00)
[2020-02-19] MEDS: DOXYCYCLINE HYCLATE 100 MG in D5W MINI-BAG PLUS 100 ML IV SCH ×2 (12:09→23:00)
[2020-02-19 16:00] VITALS: BP 139/98
[2020-02-19] MEDS ORDERED: LORazepam 2 MG/ML VIAL IV ONE (17:00)
[2020-02-19] MEDS ORDERED: LORazepam 2 MG/ML VIAL IV STA (17:26)
[2020-02-19 20:00] VITALS: BP 125/60
[2020-02-19] MEDS: MEROPENEM INJ 1 GM in IV 1 EA IV SCH (20:00)
[2020-02-19] MEDS: SODIUM CHLORIDE 1 GM TAB PO SCH (21:00)
[2020-02-19] MEDS: SPIRONOLACTONE 25 MG TAB PO SCH (21:00)
[2020-02-19] MEDS: LOSARTAN 50MG TABLET PO SCH (21:00)
[2020-02-19] MEDS: METOPROLOL SUCC *XL* 25MG TAB (TopROL *XL*) PO SCH (21:00)
[2020-02-19] MEDS: MONTELUKAST 10 MG TAB PO SCH (21:00)
[2020-02-19] MEDS: FLUoxetine 20 MG CAP PO SCH (21:00)
[2020-02-20] VITALS: BP 130/74
[2020-02-20] MEDS ORDERED: MORPHINE 2 MG/ML 1ML VIAL (J2270) IV PRN (01:30)
[2020-02-20] MEDS ORDERED: FLEET ENEMA PR PRN (01:30)
[2020-02-20] MEDS ORDERED: HYOSCYAMINE SULFATE 0.125 MG SUBL TABLET PO PRN (01:30)
[2020-02-20] MEDS ORDERED: ACETAMINOPHEN 650 MG SUPP PR PRN (01:30)
[2020-02-20] MEDS ORDERED: ATROPINE SULFATE 1% OP SOLN 2 ML BTL SL PRN (01:30)
[2020-02-20] MEDS ORDERED: BISACODYL 10 MG SUPP PR PRN (01:30)
[2020-02-20] MEDS ORDERED: ONDANSETRON 4MG/2ML VIAL IV PRN (01:30)
[2020-02-20] MEDS ORDERED: SCOPOLAMINE 1MG TRANSDERMAL PATCH TOP PRN (01:30)
[2020-02-20] MEDS: methylPREDNISolone 125MG 2ML VIAL IV SCH ×2 (02:00→08:21)
[2020-02-20] MEDS: ALPRAZolam 0.25 MG TAB PO PRN (02:42)
[2020-02-20] MEDS: LORazepam 2 MG/ML VIAL IV PRN ×7 (03:16→21:46)
[2020-02-20] MEDS: MEROPENEM INJ 1 GM in IV 1 EA IV SCH (03:24)
[2020-02-20] MEDS: ALBUTEROL SULFATE 2.5 MG/0.5 ML INH NEB SOLN NEB SCH ×2 (03:47→07:11)
[2020-02-20 04:00] VITALS: BP 137/86
[2020-02-20 05:24] LABS: BASO % 0.1 % (0.0-1.0); HEMATOCRIT 31.7 % (36.0-47.0); LYMPH # 0.9 10^3/uL (1.5-5.0); LYMPH % 5.4 % (24.0-44.0); MEAN CORPUSCULAR HEMOGLOBIN 32.6 pg (27.0-33.0); MEAN CORPUSCULAR HGB CONC 34.7 g/dl (32.0-36.5); MEAN CORPUSCULAR VOLUME 94.1 fl (80.0-96.0); MONO # 2.1 10^3/uL (0.0-0.8); MONO % 12.7 % (0.0-5.0); NEUTROPHILS # 13.5 10^3/uL (1.5-8.5); NEUTROPHILS % 80.3 % (36.0-66.0); PLATELET COUNT, AUTOMATED 269 10^3/uL (150-450); RED BLOOD COUNT 3.37 10^6/uL (4.00-5.40); WHITE BLOOD COUNT 16.8 10^3/uL (4.0-10.0)
[2020-02-20 05:55] LABS: ALT/SGPT 47 U/L (12-78); BILIRUBIN,TOTAL 0.7 MG/DL (0.2-1.0); BLOOD UREA NITROGEN 20 MG/DL (7-18); CALCIUM LEVEL 8.7 MG/DL (8.8-10.2); CARBON DIOXIDE LEVEL 27 MEQ/L (21-32); CHLORIDE LEVEL 93 MEQ/L (98-107); CREATININE FOR GFR 0.52 MG/DL (0.55-1.30); GLOMERULAR FILTRATION RATE > 60.0 (>39); GLUCOSE, FASTING 125 MG/DL (70-100); POTASSIUM SERUM 3.8 MEQ/L (3.5-5.1); SODIUM LEVEL 127 MEQ/L (136-145); TOTAL PROTEIN 6.7 GM/DL (6.4-8.2)
[2020-02-20] MEDS: SLF 3 ML SYR IV SCH (06:14)
[2020-02-20] MEDS: PANTOPRAZOLE 40MG TAB (PROTONIX) PO SCH (08:23)
[2020-02-20] MEDS: BUDESONIDE EC 3 MG CAP (ENTOCORT EC) PO SCH (08:23)
[2020-02-20] MEDS: ESBRIET 267 MG PO SCH (08:23)
[2020-02-20] MEDS: SODIUM CHLORIDE 1 GM TAB PO SCH (08:24)
[2020-02-20] MEDS ORDERED: LORazepam 2 MG/ML VIAL As Ordered ONE ×4 (09:50→18:01)
--- NOTE | 2020-02-20 10:26 | IPNPDOC ---
Subjective Date Seen The patient was seen on 02/20/20. Subjective Chief Complaint/HPI pts and all their four daughters had wished Comfort measures only last night and WINDOW GLAZIER HELPER papers were signed. Pt has been switched to WINDOW GLAZIER HELPER as of last night, she is comfortably sleeping, family at the bedside, responds to tactile stimuli only. General: Reports: ROS Unobtainable Objective Physical Examination Chest Exam: Positive: Diminished (BS but decreased bilat crackles) Heart Exam: Positive: Tachycardic, Normal S1, Normal S2 Abdomen Exam: Positive: Normal bowel sounds, Soft Extremity Exam: Positive: Normal pulses Assessment /Plan Problems (1) IPF (idiopathic pulmonary fibrosis) Status: Acute Problem Text: Pt is DNR/DNI WINDOW GLAZIER HELPER orders signed as per family's wishes Pain management with Morphine as per orders Anxiolytic meds with Aticvan as per orders Anti-secretory meds ordered Spoke with pts and all 4 daughters at bedside and grievence councelling done. (2) Chronic respiratory failure with hypoxia Status: Acute Problem Text: DC all meds WINDOW GLAZIER HELPER only (3) Hyponatremia Status: Chronic Problem Text: DC all meds No phlebotomy Plan/VTE VTE Prophylaxis Ordered?: No VTE Exclusion Mechanical Proph: Other (WINDOW GLAZIER HELPER) VTE Exclusion Pharmacological: Other (WINDOW GLAZIER HELPER) VS, I&O, 24H, Fishbone Vital Signs/I&O Vital Signs Date Time Temp Pulse Resp B/P (MAP) Pulse Ox O2 Delivery O2 Flow Rate FiO2 02/20/20 07:00 15.0 28 02/20/20 04:00 96.4 101 20 137/86 (103) 94 HVNI-Vapotherm I&O- Last 24 Hours up to 6 AM 02/20/20 06:00 Intake Total 240 ml Output Total 0 ml Balance 240 ml Laboratory Data 24H LABS Laboratory Tests 2 02/19/20 11:20: Magnesium Level 2.2 02/20/20 04:54: Immature Granulocyte % (Auto) 1.5, Neutrophils (%) (Auto) 80.3H, Lymphocytes (%) (Auto) 5.4L, Monocytes (%) (Auto) 12.7H, Eosinophils (%) (Auto) 0.0, Basophils (%) (Auto) 0.1, Neutrophils # (Auto) 13.5H, Lymphocytes # (Auto) 0.9L, Monocytes # (Auto) 2.1H, Eosinophils # (Auto) 0.0, Basophils # (Auto) 0.0, Nucleated Red Blood Cells % (auto) 0.0, Anion Gap 7L, Glomerular Filtration Rate > 60.0, Calcium Level 8.7L, Total Bilirubin 0.7#, Aspartate Amino Transf (AST/SGOT) 35, Alanine Aminotransferase (ALT/SGPT) 47, Alkaline Phosphatase 57, Total Protein 6.7, Albumin 3.0L, Albumin/Globulin Ratio 0.8L CBC/BMP Laboratory Tests 02/20/20 04:54 Microbiology Microbiology 02/15/20 Blood Culture - Preliminary, Resulted No Growth after 72 hours. All specime... 02/15/20 Blood Culture - Preliminary, Resulted No Growth after 72 hours. All specime... JASWANT HANDY MD Feb 20, 2020 10:26
[2020-02-20] MEDS: MORPHINE 4 MG/ML 1ML VIAL/SYRINGE (J2270) IV PRN ×5 (11:06→22:42)
[2020-02-20] MEDS ORDERED: MORPHINE 2 MG/ML 1ML VIAL (J2270) IV ONE (23:00)
[2020-02-21] MEDS: LORazepam 2 MG/ML VIAL IV PRN ×4 (00:03→09:11)
[2020-02-21] MEDS: MORPHINE 4 MG/ML 1ML VIAL/SYRINGE (J2270) IV PRN ×3 (02:14→07:51)
[2020-02-21] MEDS ORDERED: LORazepam 2 MG/ML VIAL As Ordered ONE (09:07)
--- NOTE | 2020-02-21 12:46 | DS.PDOC ---
Discharge Summary General Date of Admission Feb 15, 2020 at 23:59 Date of Discharge 02/21/20 Discharge Summary PROCEDURES PERFORMED DURING STAY: [None]. ADMITTING DIAGNOSES: 1. [IPF]. DISCHARGE DIAGNOSES: 1. [acute respiratory failure,Idiopathic pulmonary fibrosis,PNA]. COMPLICATIONS/CHIEF COMPLAINT: Idiopathic Pulmonary Fibrosis. HISTORY OF PRESENT ILLNESS: [Pt was admitted with increasing SOB, most likely exacerbation of IPF.]. HOSPITAL COURSE: [Pt was admitted to PCU,she was initially started on High dose steroids. pt initially responded well but later started showing sign of rapid detriraton. She was also started on Broad spectrum Anti Bx and duoneb but with no relief. Spoke with pts Die Attacher at [facility] , but unfortunately he had nothing to offer either, pts transfer to [facility] was decline. later pt and her decided to sign DNR/DNI, and once she was unable to respond her her decided to opt for [facility]. Pt was provided with comfort care and she peacfully today at 9:55 am. Family at bedside.]. DISCHARGE MEDICATIONS: Please see below. ALLERGIES: Please see below. PHYSICAL EXAMINATION ON DISCHARGE: Pt LABORATORY DATA: Please see below. IMAGING: [] PROGNOSIS: [] ACTIVITY: [As tolerated]. DIET: [] DISCHARGE PLAN: [] DISPOSITION: 20 . DISCHARGE INSTRUCTIONS: 1. []. ITEMS TO FOLLOWUP ON ON OUTPATIENT: 1. []. DISCHARGE CONDITION: []. TIME SPENT ON DISCHARGE: 20 minutes. Vital Signs/I&Os Vital Signs Date Time Temp Pulse Resp B/P (MAP) Pulse Ox O2 Delivery O2 Flow Rate FiO2 02/21/20 09:32 15.0 28 02/21/20 08:48 Nasal Cannula 02/20/20 04:00 96.4 101 20 137/86 (103) 94 I&O- Last 24 Hours up to 6 AM 02/21/20 06:00 Intake Total 0 ml Output Total 0 ml Balance 0 ml Microbiology Microbiology 02/15/20 Blood Culture - Final, Complete NO GROWTH AFTER 5 DAYS 02/15/20 Blood Culture - Final, Complete NO GROWTH AFTER 5 DAYS Discharge Medications Scheduled Aspirin (Aspirin EC) 81 Mg Tablet.dr, 81 MG PO QHS, (Reported) Budesonide (Budesonide EC) 3 Mg Capdr...er, 3 MG PO TID, (Reported) Cyclosporine (Restasis) 0.05 % Emu, 1 DROP OU BID, (Reported) Esomeprazole Magnesium (Nexium) 40 Mg Cap, 40 MG PO DAILY, (Reported) Estradiol (Estrace) 42.5 Gm Cream.appl, 1 DOSE VA 3XW, (Reported) SATURDAY, SATURDAY AND SATURDAY AT QHS Fluoride (Sodium) (Sf 5000 Plus) 51 Gm Cream..g., 1 DOSE TEETH BID, (Reported) Fluoxetine Hcl (Fluoxetine HCl) 40 Mg Capsule, 40 MG PO QHS, (Reported) Fluticasone Propion/Salmeterol (Advair Hfa 230-21 Mcg Inhaler) 12 Gm Hfa.aer.ad, 2 PUFF INH BID, (Reported) Losartan Potassium (Cozaar) 100 Mg Tab, 100 MG PO QHS, (Reported) Metoprolol Succinate (Toprol Xl) 25 Mg Tab, 25 MG PO QHS, (Reported) Montelukast Sodium (Singulair) 10 Mg Tab, 10 MG PO QHS, (Reported) Olopatadine HCl (Pataday) 0.2 % Lenora, 1 DROP OU DAILY, (Reported) Pirfenidone (Esbriet) 267 Mg Capsule, 534 MG PO TID, (Reported) Rosuvastatin Calcium (Crestor) 20 Mg Tab, 20 MG PO QHS, (Reported) Spironolactone (Spironolactone) 50 Mg Tablet, 25 MG PO QHS, (Reported) Scheduled PRN Albuterol Sulf (Albuterol Sulfate) 2.5 Mg/3 Ml Vial.neb, 2.5 MG INH QID PRN for SHORTNESS OF BREATH, (Reported) Albuterol Sulfate (Ventolin Hfa) 18 Gm Hfa.aer.ad, 2 PUFFS INH QID PRN for SHORTNESS OF BREATH, (Reported) Dicyclomine HCl (Dicyclomine HCl) 10 Mg Capsule, 10 MG PO TID PRN for SPASMS, (Reported) Diphenoxylate HCl/Atropine (Lomotil 2.5-0.025 mg Tablet) 1 Each Tablet, 1 TAB PO TID PRN for DIARRHEA, (Reported) Hydrocortisone (Proctozone-Hc) 30 Gm Crm.pe.albert, 1 DOSE [place] QID PRN for ITCHING, (Reported) Mometasone Furoate (Mometasone Furoate) 17 Gm [place].pump, 2 SPRAY NA DAILY PRN for NASAL CONGESTION, (Reported) Pseudoephedrine HCl (Sudafed) 30 Mg Tablet, 30 MG PO BID PRN for NASAL CONGESTION, (Reported) Allergies Coded Allergies: Penicillins (Verified Allergy, Severe, HIVES , DIFF BREATHING, 02/16/20) Sulfa (Sulfonamide Antibiotics) (Verified Allergy, Severe, HIVES , DIFF BREATHING, 02/16/20) codeine (Verified Allergy, Severe, HIVES , DIFF BREATHING, 02/16/20) JASWANT HANDY MD Feb 21, 2020 12:46
--- NOTE | 2020-02-23 12:52 | ECHO ---
DATE OF PROCEDURE: 02/19/2020 Age: 79 Gender: Female Height: 155 cm Weight: 61 kg REFERRING PHYSICIAN: Dr. Mai Pulido INDICATION: Dyspnea. MEASUREMENTS: 2D Measurements: Left atrium 3.7 cm Interventricular septum 0.99 cm Posterior wall 0.99 cm Left ventricle diastole 4.0 cm Aortic root 2.8 cm Inferior vena cava 1.9 cm (more than 50% respiratory variation) Doppler Measurements: Mild aortic regurgitation No aortic stenosis Aortic valve velocity 121 cm/s LVOT velocity 69.2 cm/s Mild mitral regurgitation Mitral E velocity 74.0 cm/s Mitral A velocity 71.1 cm/s Mitral deceleration time 148 msec Mild tricuspid regurgitation Estimated right ventricular systolic pressure 41-46 mmHg Estimated right atrial pressure 5-10 mmHg Pulmonary artery systolic pressure 40 mmHg MITRAL ANNULAR TISSUE DOPPLER E prime septal 4.2 cm/s, E prime lateral 6.8 cm/s DESCRIPTION: Rhythm was sinus. Image quality was fair. No pericardial effusion. This was a 2D, M-mode, color flow Doppler, and pulsed wave Doppler examination including mitral annular tissue Doppler. CONCLUSIONS: 1. Normal left ventricle internal dimensions and wall thickness. Normal regional LV wall motion and wall thickening. Normal LV systolic function. LVEF 65% by visual estimate. Difficult to fully assess LV diastolic function. 2. Suggestive of moderate elevation of estimated right ventricle systolic pressure and pulmonary artery systolic pressure. Normal right ventricle size and systolic function. 3. Moderate aortic valve sclerosis of a 3-cuspid aortic valve. Mild aortic regurgitation. No aortic stenosis. 4. Moderate mitral annular calcification. Mild-moderate mitral regurgitation. No mitral stenosis. 5. Otherwise normal appearing echocardiogram Doppler findings. MTDD
[2020-02-24 11:08] LABS: MYCOPLASMA PNEUMONIAE IgG <100 U/mL (0-99); MYCOPLASMA PNEUMONIAE IgM <770 U/mL (0-769)
--- NOTE | 2020-03-06 13:22 | ECGEPIP ---
[facility] - ED Test Date: 2020-02-15 Pat Name: JB SMITH Department: Room: [place] [address] Gender: Female Import/Export Analyst: thais : 1940 Requested By: DIEGO Marquis Order Number: [id number] Reading MD: Gabriel Donovan Measurements Intervals [place] Rate: 70 P: 12 DE: 189 QRS: -7 QRSD: 94 T: 100 QT: 404 QTc: 438 Interpretive Statements SINUS RHYTHM PRWP NSTTW CHANGES BASELINE ARTIFACT SEE SCANNED DOWNTIME REPORT
--- NOTE | 2020-03-15 12:53 | HPE ---
DATE OF ADMISSION: 02/15/2020 CHIEF COMPLAINT: Shortness of breath. HISTORY OF PRESENT ILLNESS: This is a 79-year-old female with history of idiopathic pulmonary fibrosis, followed in [place] by her head banquet waiter/waitress, who was in her usual state of health until about a week ago when she developed a dry cough without fever or chills, difficulty with dyspnea on exertion and eventually dyspnea at rest. At baseline, she is on 5 liters of oxygen daily and 2 liters q.h.s., unable to make her bed. Recently in the past week, she had seen her head banquet waiter/waitress, who changed her medications and since then she has had difficulty ambulating 2-3 feet at home, prompting her to come into the Emergency Room this morning. Patient has had poor appetite and has had a 30 pound weight loss in the past few months. She has had no relief despite nebulizer treatments at home, prompting her to come into the ER. No COVID exposure. Patient denies any sputum production. In the ER, CT chest showed no PE, chronic IPF with honeycombing. No infiltrate or consolidation. No pleural effusion. There is subpleural reticulation, interlobular septal thickening and traction bronchiectasis in both lungs. In keeping with patient's idiopathic pulmonary fibrosis, dilation of the pulmonary artery trunk which may indicate pulmonary artery hypertension, cardiomegaly, moderate to large sliding hiatal hernia and prevascular and subcarinal lymphadenopathy. In the ambulance, patient was given Decadron 10 mg intravenously with some improvement. Hospitalist was called to admit for exacerbation of bronchiectasis in the setting of IPF end-stage. PAST MEDICAL HISTORY: Chronic hypoxic respiratory failure on 5 liters home oxygen and 2 liters q.h.s., idiopathic pulmonary fibrosis, bronchiectasis, coronary artery disease, reflux, dysthymia, hypertension, asthma, HSV1, hypercholesterolemia, allergic rhinitis, hemorrhoids, dry eyes, obesity, osteoarthritis, Menieres Disease. ALLERGIES: Bactrim causing hives, codeine sulfate redness, shortness of breath, Indocin, penicillin and sulfa. PAST SURGERY HISTORY: [facility] heart surgery 03/2013, left breast biopsy 2013, hemorrhoidectomy, colonoscopy, T&A, skin biopsy, tubal ligation, bilateral cataract with implants. HOME MEDICATIONS: 1. Aspirin 81 mg daily. 2. Norvasc 5 mg daily. 3. Dicyclomine 10 mg b.i.d. 4. Nexium 40 mg daily. 5. Fluoxetine 20 mg daily. 6. Cozaar 100 mg daily. 7. Toprol XL 25 mg daily. 8. Mucinex 50 mcg for expectoration two sprays each nostril daily. 9. Ventolin HFA two puffs q.i.d. as needed. 10. Acyclovir five times daily as needed. 11. OsCal/Vitamin D 500/200 one tablet daily. 12. Singulair 10 mg daily. 13. Pataday 0.25 one drop each eye daily. 14. Crestor 20 daily. 15. Restasis 0.05 b.i.d. 16. Albuterol nebulizer 2.5 q.i.d. as needed. 17. Budesonide 3 mg p.o. t.i.d. 18. Dicyclomine 10 mg t.i.d. as needed for spasms. 19. Lomotil one tablet t.i.d. as needed for diarrhea. 20. Fluoxetine 40 mg q.h.s. 21. Advair HFA 230/21 two puffs inhaled b.i.d. 22. Hydrocortisone Proctozonel 30 grams as needed q.i.d. 23. Losartan 100 mg q.h.s. 24. Metoprolol 25 mg q.h.s. 25. Sudafed 30 mg b.i.d. as needed. 26. Spironolactone 25 mg q.h.s. SOCIAL HISTORY: Previous smoker; quit 35 years ago a pack a day for 15 years, 15 pack history of smoking. Social alcohol use. Retired food and beverage intern. FAMILY HISTORY: Father age 54; acute PA, diagnosed with hypertension. Mother age 84 of CVA. One brother with prostate cancer . One sister with diabetes, lung disease and heart disease. One brother with lung cancer. Sister healthy. Daughter with lupus, fibromyalgia. REVIEW OF SYSTEMS: As per HPI; 12-point review of systems otherwise negative. PHYSICAL EXAMINATION: Temperature 98.6, pulse 71, respiratory rate 20, blood pressure 111/85, 98% on room air. General: Awake, alert, oriented to person, place and time. Answers questions appropriately. No cyanosis, icterus or jaundice. No use of accessory respiratory muscles. No nasal flaring or tracheal deviation. No JVD to thyromegaly or cervical lymphadenopathy. Lungs; diminished bibasilar crackles with occasional wheezing bilaterally. Heart; S1, S2, sinus rhythm. Abdomen is soft, nontender, non-distended, positive bowel sounds. Extremities; no cyanosis, clubbing or pitting edema. LABORATORY DATA: White count 11.8, hemoglobin 11, hematocrit 35, platelet count 268,000. Sodium 125, potassium 4.6, chloride 93, bicarb 25, BUN 14, creatinine 0.5, glucose 97. Lactic acid 1. Calcium 8.7. Total bilirubin 0.2, direct bilirubin less than 0.1. AST 15, ALT 13, alkaline phosphatase 57. Total CK 43. Troponin less than 0.02. BNP 203. Albumin 3.3. TSH 2.75. IMAGING STUDIES: CT chest: No PE, no thoracic aortic aneurysm, pseudoaneurysm, intramural hematoma penetrating abscess, sclerotic ulcer or dissection, subpleural reticulation, honeycombing, interlobular septal thickening, traction bronchiectasis in both lungs. In keeping with patient's history of idiopathic pulmonary fibrosis, dilation of pulmonary artery trunk which may indicate pulmonary artery hypertension, cardiomegaly, moderate to large sliding hiatal hernia, prevascular and subcarinal lymphadenopathy. ASSESSMENT & PLAN: This is a 79-year-old female with history of severe pulmonary arterial hypertension, idiopathic pulmonary fibrosis, follows with head banquet waiter/waitress in [place], who presents to the Emergency Room with worsening shortness of breath for the past week without fever or chills. She was found to have traction bronchiectasis in the setting of chronic pulmonary fibrosis. 1. Exacerbation of chronic idiopathic pulmonary fibrosis with traction bronchiectasis: Patient had been given I.V. Decadron on route to the Emergency Room by EMS. She will be continued on Solu-Medrol 80 mg I.V. every 6 hours, nebulizer treatment every 4 hours and Avelox 400 daily and every 1 hour as needed for worsening shortness of breath. Patient might be resuming her home dose of Budesonide t.i.d., nebulizer treatments, supplement oxygen 5 liters during the day to keep O2 sat greater than 90% as well as 2 liters q.h.s. Patient is not in any respiratory distress at this time. 2. She may resume on her home dose of Esbriet 534 mg t.i.d. 3. History of allergic rhinitis: May be continued on her home dose of Mometasone, Pataday, Montelukast, hyperlipidemia on Rosuvastatin, hypertension; continue on Spironolactone, depression; continue Fluoxetine. MTDD
--- NOTE | 2020-03-17 10:27 | REP ---
PORTABLE CHEST X-RAY CLINICAL: Cough and dyspnea. COMPARISON: 02/16/2017. FINDINGS: Mediastinum and cardiac silhouette are stable. The lung [place] demonstrate advanced fibrosis and emphysematous disease. Subtle superimposed atelectasis cannot be excluded. No discrete focal consolidation or effusion. No pneumothorax. Skeletal structures demonstrate age-related osteopenia and degenerative changes. IMPRESSION: Advanced chronic fibrosis and emphysematous disease. No focal consolidation or effusion. Cannot exclude basilar atelectasis. MTDD
== END 2020-02-21 12:11 | disposition expired | DRG 196 ==
LOC: M ED 19:28 → M ED INP 23:59 → M MSPAV 02-16 02:44 → M PCU 02-18 03:52 → M MSPAV 02-20 06:38 → UNDODISIN 02-21 09:55
PROVIDERS: ADMIT General Practice; ATTEND Internal Medicine
DX: J84.112 Idiopathic pulmonary fibrosis (principal); J18.9 Pneumonia, unspecified organism; J96.21 Acute and chronic respiratory failure with hypoxia; E87.1 Hypo-osmolality and hyponatremia; I27.21 Secondary pulmonary arterial hypertension; F41.9 Anxiety disorder, unspecified; J47.9 Bronchiectasis, uncomplicated; Z88.0 Allergy status to penicillin; Z51.5 Encounter for palliative care; Z66 Do not resuscitate; Z88.2 Allergy status to sulfonamides; Z88.5 Allergy status to narcotic agent; Z79.82 Long term (current) use of aspirin; Z79.899 Other long term (current) drug therapy; Z99.81 Dependence on supplemental oxygen; Z87.891 Personal history of nicotine dependence; E78.5 Hyperlipidemia, unspecified; J45.909 Unspecified asthma, uncomplicated; I10 Essential (primary) hypertension; F34.1 Dysthymic disorder; I25.10 Atherosclerotic heart disease of native coronary artery without angina pectoris; M19.90 Unspecified osteoarthritis, unspecified site; Z98.41 Cataract extraction status, right eye; Z98.42 Cataract extraction status, left eye